=== PATIENT | female | born 1985 | race Caucasian/White ===

== ENCOUNTER 2020-06-22 12:52 | Emergency (ER) | payer MEDICARE, MEDICAID ==
[~2020-06-22] VITALS: Ht 172.7 cm; Wt 86.2 kg
[~2020-06-22 12:52] MED LIST: ABILIFY 5 MG TAB5 M1 PO; ACETAMINOPHEN-1 EAC1 PO; AMOXICILLIN500 M1; BUSPIRONE HCL10 MG PO; CARVEDILOL12.5 MG PO; CLONIDINE0.1 PO; CYCLOBENZAPRINE5 MG PO; EAR DROPS15 ML; FLEXERIL PO; HYDROCODON-ACE1 EACH PO; HYDROCODONE-AP1 EAC6 PO; IBUPROFEN 200200 M1; IBUPROFEN 600600 M1 PO; KLONOPIN1 MG PO; LAMICTAL100 MG PO; LITHIUM CARBON300 M3 PO; MEDROLDOSEPACK PO; MINIPRESS2 MG PO; NEURONTIN 300300 M1; NOHOMEMEDICATIONS; NORCO 5-325 TA1 EACH PO; NORVASC5 MG PO; PAXIL10 MG PO; PAXIL30 MG; PAXIL40 MG PO; PERCOCET 5-3251 EACH PO; PRAZOSIN HCL5 MG PO; PROPRANOLOL 1010 MG PO; ROBAXIN500 MG PO; SEROQUEL XR 20200 MG PO; SEROQUEL200 MG PO; SEROQUEL300 MG; SEROQUEL400 MG PO; TRAMADOL 50 MG50 MG PO; TRAZODONE HCL100 MG PO; ZOFRAN4 MG PO
[2020-06-22] MEDS ORDERED: KEFLEX500 M1 PO ×2 (14:09→14:20)
[2020-06-22 14:25] VITALS: BP 168/74
== END 2020-06-22 14:26 | disposition home or self-care (01) ==
LOC: M.ERS 12:52
DX: S81.811A Laceration without foreign body, right lower leg, initial encounter (principal); F31.9 Bipolar disorder, unspecified; F41.9 Anxiety disorder, unspecified; F17.210 Nicotine dependence, cigarettes, uncomplicated; Z98.890 Other specified postprocedural states; Z90.49 Acquired absence of other specified parts of digestive tract; Z85.6 Personal history of leukemia; Z88.8 Allergy status to other drugs, medicaments and biological substances; W26.8XXA Contact with other sharp object(s), not elsewhere classified, initial encounter; Y93.89 Activity, other specified; Y92.89 Other specified places as the place of occurrence of the external cause; Y99.8 Other external cause status

== ENCOUNTER 2020-06-26 10:18 | Emergency (ER) | payer MEDICARE, MEDICAID ==
[~2020-06-26] VITALS: Ht 172.7 cm; Wt 86.2 kg
[~2020-06-26 10:18] MED LIST changes: +KEFLEX500 M1 PO
[2020-06-26] MEDS ORDERED: NORCO 5-325 TA1 EAC2 PO (11:16)
[2020-06-26 11:39] VITALS: BP 167/92
== END 2020-06-26 11:40 | disposition home or self-care (01) ==
LOC: M.ERS 10:18
DX: S63.641A Sprain of metacarpophalangeal joint of right thumb, initial encounter (principal); F17.210 Nicotine dependence, cigarettes, uncomplicated; Z88.8 Allergy status to other drugs, medicaments and biological substances; Z90.89 Acquired absence of other organs; X50.9XXA Other and unspecified overexertion or strenuous movements or postures, initial encounter; Y93.89 Activity, other specified; Y92.89 Other specified places as the place of occurrence of the external cause; Y99.8 Other external cause status

== ENCOUNTER 2021-03-12 16:22 | Emergency (ER) | payer MEDICARE, MEDICAID ==
[~2021-03-12] VITALS: Ht 172.7 cm; Wt 87.1 kg
[~2021-03-12 16:22] MED LIST changes: +NORCO 5-325 TA1 EAC2 PO
[2021-03-12] MEDS ORDERED: IGG (16:41)
[2021-03-12] MEDS ORDERED: VALCADE (16:41)
[2021-03-12] MEDS ORDERED: FLEXERIL PO (16:41)
[2021-03-12] MEDS ORDERED: XANAX XR0.5 MG PO (16:42)
[2021-03-12] MEDS ORDERED: ZOMETA 4 MG4 MG/5 M1 IV PUSH (16:42)
[2021-03-12 16:58] LABS: ABSOLUTE BASOPHILS 0.1 thou/uL (0.0-0.2); ABSOLUTE EOSINOPHILS 0.2 thou/uL (0.0-0.7); ABSOLUTE MONOCYTES 0.8 thou/uL (0.0-1.2); ABSOLUTE NEUTROPHILS 8.4 thou/uL (1.6-8.1); BASOPHILS 1.2 %; EOSINOPHILS 1.7 %; HEMATOCRIT 47.1 % (37.0-47.0); HEMOGLOBIN 15.5 gm/dL (12.0-15.0); LYMPHOCYTES 23.9 %; MCH 32.5 pg (26.0-34.0); MCV 98.4 fL (80.0-100.0); MONOCYTES 6.2 %; MPV 7.8 fl. (7.2-11.1); NUCLEATED RBCS 0 /100WBC; PLATELET COUNT* 340 thou/uL (150-400); RBC 4.78 mil/uL (4.20-5.00); RDW-CV 13.6 % (10.5-14.5); WBC 12.6 thou/uL (4.0-11.0)
[2021-03-12 17:05] LABS: CALCIUM 9.3 mg/dL (8.5-10.1); CREATININE 1.4 mg/dL (0.6-1.3); POTASSIUM 3.5 mmol/L (3.5-5.1)
[2021-03-12 17:09] LABS: APTT 26.6 Seconds (25.0-31.3); PROTIME 10.2 Seconds (9.20-11.50)
[2021-03-12 17:16] LABS: ALBUMIN 4.5 g/dL (3.4-5.0); TOTAL BILIRUBIN 0.3 mg/dL (<0.1-1.0); TOTAL PROTEIN 7.8 g/dL (6.4-8.2)
[2021-03-12] MEDS ORDERED: HYDROCODON-ACE1 EAC7 PO (17:21)
[2021-03-12 17:33] VITALS: BP 136/72
--- NOTE | 2021-03-13 14:08 | EKG ---
[place] [address] ELECTROCARDIOGRAM REPORT Name: ALLRED,BLAYNE ROCÍO Room: [facility]#: [id number] Admission: 03/12/21 Attend Phys: Discharge: 03/12/21 Date of : 81 Date of Service: 03/12/21 1643 Report #: [id number] THIS REPORT FOR: //name// [facility] ED Test Date: 2021-03-12 Test Time: 16:43:12 Pat Name: BLAYNE ALLRED Department: Room: Gender: It [employer] Development Manager: : [id number] Requested By: Yong Valencia Order Number: [id number] MD: Leon Briceño Measurements Intervals [place] Rate: 82 P: 56 MN: 128 QRS: 41 QRSD: 74 T: 55 QT: 368 QTc: 430 Interpretive Statements Sinus rhythm Minimal ST depression, anterolateral leads Baseline wander in lead(s) V5 Compared to ECG 03/05/2016 11:17:11 ST (T wave) deviation now present Electronically Signed On 03-13-2021 14:07:47 CDT by Leon Briceño [email or web address] <ELECTRONICALLY SIGNED> By: Leon Briceño MD, [facility] 03/13/21 1407 1643 1643 Leon Briceño MD, [facility] /EPI
== END 2021-03-12 17:34 | disposition home or self-care (01) ==
LOC: M.ERS 16:22
PROVIDERS: Family Medicine
DX: R25.2 Cramp and spasm (principal); F17.210 Nicotine dependence, cigarettes, uncomplicated; Z90.89 Acquired absence of other organs; Z98.890 Other specified postprocedural states; Z88.8 Allergy status to other drugs, medicaments and biological substances